=== PATIENT | female | born 1980 ===

== ENCOUNTER → 2017-08-17 | Outpatient (CLI) | payer OTHER | END | disposition home or self-care (01) | LOC: U/S 16:05 | DX: O09.00 Supervision of pregnancy with history of infertility, unspecified trimester (principal); O20.8 Other hemorrhage in early pregnancy; O09.511 Supervision of elderly primigravida, first trimester; Z3A.01 Less than 8 weeks gestation of pregnancy | CPT/HCPCS: 76801; 82671; 84144; 84443; 84702 ==